=== PATIENT | female | born 1990 | race African-American/Black ===

== ENCOUNTER 2019-03-10 21:16 | Emergency (ER) | payer MEDICAID ==
[~2019-03-10] VITALS: Ht 160 cm; Wt 90.0 kg
[2019-03-11] MEDS ORDERED: SODIUM CHLORIDE 0.9% 1,000 ML IV ONE (01:10)
[2019-03-11] MEDS ORDERED: ONDANSETRON HCL 4MG/2ML INJ IV ONE (01:15)
[2019-03-11] MEDS ORDERED: MORPHINE SULFATE 2 MG/ML CPJ (NOT FOR IM USE) IV ONE (01:15)
[2019-03-11 01:55] LABS: CHLORIDE 110 mEq/L (98-107)
[2019-03-11 01:59] LABS: HCG SCREEN NEGATIVE
[2019-03-11 02:00] LABS: BASOPHILS % 0.5 % (0.0-2.0); EOSINOPHILS % 1.4 % (0.0-5.0); HEMOGLOBIN. 12.8 g/dL (12.0-16.0); LYMPHOCYTES % 29.7 % (20.0-50.0); MEAN CORPUSCULAR HEMOGLOBIN 25.6 pg (28.0-32.0); MEAN CORPUSCULAR VOLUME 75.8 fL (81.0-99.0); MEAN PLATELET VOLUME 8.2 fl (7.4-10.4); MONOCYTES % 7.2 % (2.0-8.0); NEUTROPHILS % 61.2 % (40.0-76.0); PLATELET 302 x1000/uL (130-400); RED BLOOD CELL COUNT 5.01 mill/uL (4.2-5.4); RED CELL DISTRIBUTION WIDTH 17.3 % (11.6-14.6)
[2019-03-11 03:17] LABS: CLARITY URINE CLEAR (CLEAR); COLOR URINE YELLOW (YELLOW); KETONES URINE NEGATIVE (NEGATIVE); LEUKOCYTE ESTERASE URINE NEGATIVE (NEGATIVE); NITRITE URINE POSITIVE (NEGATIVE); OCCULT BLOOD URINE NEGATIVE (NEGATIVE); PROTEIN URINE NEGATIVE (NEGATIVE); SPECIFIC GRAVITY URINE 1.009 (1.005-1.030); UROBILINOGEN URINE 0.2 E.U./dL (0.2-1.0)
[2019-03-11 05:08] LABS: PROTHROMBIN TIME 10.7 sec (9.6-11.0)
[2019-03-11] MEDS ORDERED: PIPERACILLIN/TAZOBACTAM 3.375GM/50ML PREMIX IV ONE (06:30)
[2019-03-11] MEDS ORDERED: IOHEXOL-300 100 ML BOTTLE ONE (07:00)
[2019-03-11] MEDS ORDERED: DEXT 5%/LACTATED RINGERS 1,000 ML IV SCH (09:11)
[2019-03-11] MEDS ORDERED: PANTOPRAZOLE SODIUM 40 MG/VIAL IV SCH (09:15)
[2019-03-11] MEDS ORDERED: CLONIDINE 0.1MG TABLET PO PRN (09:15)
[2019-03-11] MEDS ORDERED: KETOROLAC 15MG/ML VIAL IV PRN (09:15)
[2019-03-11] MEDS ORDERED: DOCUSATE SODIUM 100MG CAPSULE PO PRN (09:15)
[2019-03-11] MEDS ORDERED: MAGNESIUM/ALUMINUM HYDROXIDE/SIMETHICONE 30ML UDC PO PRN (09:15)
[2019-03-11] MEDS ORDERED: NITROGLYCERIN 0.4MG TABLET SL SL PRN (09:15)
[2019-03-11] MEDS ORDERED: ACETAMINOPHEN 325MG TABLET PO PRN (09:15)
[2019-03-11] MEDS ORDERED: ONDANSETRON HCL 4MG/2ML INJ IV PRN (09:15)
[2019-03-11] MEDS ORDERED: GUAIFENESIN 200MG/10ML SUGAR FREE UDC PO PRN (09:15)
[2019-03-11] MEDS ORDERED: IPRATROPIUM/ALBUTEROL 0.5-3(2.5)MG/3ML NEB NEB PRN (09:15)
[2019-03-11] MEDS ORDERED: LORAZEPAM 2MG/ML CPJ IV PRN (09:15)
[2019-03-11] MEDS ORDERED: CEFTRIAXONE 1 G PREMIX 50 ML IV SCH (09:30)
[2019-03-11] MEDS ORDERED: METRONIDAZOLE 500 MG PREMIX 100 ML IV SCH (14:00)
[2019-03-11 14:19] VITALS: BP 115/69
[2019-03-12 07:38] LABS: *AMPHETAMINES SCREEN URINE NEGATIVE (NEGATIVE); *BARBITURATES SCREEN URINE NEGATIVE (NEGATIVE); *BENZODIAZEPINES SCREEN URINE NEGATIVE (NEGATIVE)
[2019-03-12 07:39] LABS: *COCAINE SCREEN URINE NEGATIVE (NEGATIVE); CANNABINOID URINE SCREEN NEGATIVE (NEGATIVE); METHADONE URINE SCREEN NEGATIVE (NEGATIVE); PHENCYCLIDINE URINE SCREEN NEGATIVE (NEGATIVE)
[2019-03-12 07:48] LABS: OPIATES URINE SCREEN PRESUMTIVE POSITIVE (NEGATIVE)
[2019-03-12] MEDS ORDERED: CEFTRIAXONE 1 G PREMIX 50 ML IV SCH (10:00)
== END 2019-03-11 14:20 | disposition left against medical advice (07) ==
LOC: ER 21:16 → CANRESERV 03-11 13:43 → ENRESERV 03-11 13:43 → CANBEDREQ 03-11 14:05 → ER 03-11 14:20
DX: K80.00 Calculus of gallbladder with acute cholecystitis without obstruction (principal); N30.00 Acute cystitis without hematuria; E66.9 Obesity, unspecified; F17.210 Nicotine dependence, cigarettes, uncomplicated; Z68.35 Body mass index [BMI] 35.0-35.9, adult
CPT/HCPCS: 36415; 74177; 76705; 78227; 80053; 80305; 81003; 83690; 84703; 85025; 85610; 96365; 96366; 96367; 96375; 99284; A9537; C9113; J0696; J1885; J2270; J2405; J2543; J7030; Q9967

== ENCOUNTER 2019-03-15 17:03 | Emergency (ER) | payer MEDICAID ==
[~2019-03-15] VITALS: Ht 160 cm; Wt 90.0 kg
[2019-03-15] MEDS ORDERED: ONDANSETRON HCL 4MG/2ML INJ IV ONE (20:30)
[2019-03-15 20:37] LABS: BASOPHILS % 0.7 % (0.0-2.0); EOSINOPHILS % 4.1 % (0.0-5.0); HEMOGLOBIN. 12.6 g/dL (12.0-16.0); MEAN CORPUSCULAR HEMOGLOBIN 25.6 pg (28.0-32.0); MEAN CORPUSCULAR VOLUME 76.9 fL (81.0-99.0); MEAN PLATELET VOLUME 8.1 fl (7.4-10.4); MONOCYTES % 6.5 % (2.0-8.0); NEUTROPHILS % 59.7 % (40.0-76.0); PLATELET 315 x1000/uL (130-400); RED BLOOD CELL COUNT 4.94 mill/uL (4.2-5.4); RED CELL DISTRIBUTION WIDTH 17.1 % (11.6-14.6)
[2019-03-15 20:40] LABS: CHLORIDE 109 mEq/L (98-107)
[2019-03-15 21:34] LABS: CLARITY URINE CLOUDY (CLEAR); COLOR URINE YELLOW (YELLOW); KETONES URINE NEGATIVE (NEGATIVE); LEUKOCYTE ESTERASE URINE 2+ (NEGATIVE); NITRITE URINE NEGATIVE (NEGATIVE); OCCULT BLOOD URINE NEGATIVE (NEGATIVE); PROTEIN URINE TRACE (NEGATIVE); SPECIFIC GRAVITY URINE 1.028 (1.005-1.030); UROBILINOGEN URINE 0.2 E.U./dL (0.2-1.0)
[2019-03-15 23:23] VITALS: BP 108/66
== END 2019-03-15 23:24 | disposition home or self-care (01) ==
LOC: ER 17:25
DX: N39.0 Urinary tract infection, site not specified (principal); F17.210 Nicotine dependence, cigarettes, uncomplicated; E11.9 Type 2 diabetes mellitus without complications
CPT/HCPCS: 36415; 76705; 80053; 81003; 81025; 83690; 85025; 87086; 96374; 99284; J2405; Z7610

== ENCOUNTER 2019-11-03 20:16 | Emergency (ER) | payer MEDICAID ==
[~2019-11-03] VITALS: Ht 160 cm; Wt 91.0 kg
[2019-11-03 22:17] LABS: CLARITY URINE CLOUDY (CLEAR); COLOR URINE YELLOW (YELLOW); KETONES URINE TRACE (NEGATIVE); LEUKOCYTE ESTERASE URINE NEGATIVE (NEGATIVE); NITRITE URINE NEGATIVE (NEGATIVE); OCCULT BLOOD URINE NEGATIVE (NEGATIVE); PH URINE 5.5 (4.5-8.0); PROTEIN URINE NEGATIVE (NEGATIVE)
[2019-11-03] MEDS ORDERED: AZITHROMYCIN 500 MG TABLET PO ONE (23:15)
[2019-11-03] MEDS ORDERED: CEFTRIAXONE SODIUM 250 MG/VIAL IM ONE (23:15)
[2019-11-03] MEDS ORDERED: LIDOCAINE HCL 1% 20ML VIAL (Pyxis) INJ INFIL ONE (23:15)
[2019-11-03 23:47] VITALS: BP 129/81
== END 2019-11-04 00:15 | disposition home or self-care (01) ==
LOC: ER 20:25
DX: N76.0 Acute vaginitis (principal); Z11.3 Encounter for screening for infections with a predominantly sexual mode of transmission; N92.6 Irregular menstruation, unspecified
CPT/HCPCS: 81003; 81025; 96372; 99283; J0696; J3490